=== PATIENT | female | born 1945 | race Caucasian/White ===

== ENCOUNTER → 2017-11-23 | Outpatient (CLI) | payer MEDICARE, OTHER ==
[~2017-11-23] MED LIST: ALBU90OI61 INH; Augmentin 875-1 EACH PO; BENTYL10 MG PO; BUDE6HFA INH; CALCAVITDA; CIPR500 PO; CLIN150 PO; CYCL10 PO; Ceftriaxone2 G2 IV; DOCU100 PO; DULO30 PO; FENT25TP TOP; FENT75TP TOP; FURO40 PO; HYDACE5 PO; HYDACE7.5 PO; HYDR1TAB94 PO; IBUP800 PO; K PO; KRISTALOSE; LACT10SY PO; LORA1 PO; LORTAB 7.5-3251 EACH PO; MONT10T PO; MONT4 PO; Miralax17 GM PO; NITR100CA PO; OMEP20ER PO; OXYACE5T PO; OXYC10ER PO; OXYC5 PO; Oxycodone HCl20 M1 PO; PANT40 PO; POTA10T PO; POTCHL20ER PO; TIOT18; TIOT18 INH; VIT E PO; XGEVA120 MG/1.7 SQ; ZOLP10 PO; ZOLP5 PO
== END ==
LOC: LAB EV 11:14
DX: R30.0 Dysuria (principal)
CPT/HCPCS: 87077; 87086; 87186

== ENCOUNTER → 2018-05-28 | Outpatient (CLI) | payer MEDICARE, OTHER | END | disposition home or self-care (01) | LOC: LAB EV 11:28 → LAB SHORT 11:28 | DX: N39.0 Urinary tract infection, site not specified (principal) | CPT/HCPCS: 87077; 87086; 87186 ==